=== PATIENT | female | born 1985 | race Caucasian/White ===

== ENCOUNTER → 2023-07-29 12:11 | Outpatient (CLI) | payer OTHER, MEDICAID, SELFPAY ==
[2023-07-29 13:01] LABS: Add Manual Diff / Slide Review NO; Basophils Absolute Auto 100 /uL (0-100); Basophils Percent Auto 0.6 % (0-2); Eosinophils Absolute Auto 200 /uL (0-450); Hematocrit 37.4 % (36-46); Hemoglobin 12.7 g/dL (12.0-16.0); Lymphocytes Absolute Auto 3200 /uL (1100-4500); Lymphocytes Percent Auto 33.6 % (25-40); Mean Corpuscular Volume 88.3 fL (80-100); Monocytes Absolute Auto 700 /uL (0-900); Monocytes Percent Auto 7.4 % (3-14); Neutrophils Absolute Auto 5400 /uL (1500-7000); Neutrophils Percent Auto 56.4 % (50-75); Platelet Count 339 X10^3/uL (150-400); Red Blood Cell Count 4.23 X10^6/uL (4.0-5.2); Red Cell Distribution Width 13.2 % (11.6-14.8); White Blood Cell Count 9.6 X10^3/uL (4.5-11.0)
[2023-07-29 13:42] LABS: Hemoglobin A1C% w Est Avg Glu 5.2 % (4.0-6.0)
[2023-07-29 14:21] LABS: TSH w/ Reflex to FT4 1.46 uIU/mL (0.47-4.68)
[2023-07-29 14:23] LABS: Alanine Aminotransferase 23 IU/L (<35); Albumin 4.2 g/dL (3.5-5.0); Albumin Globulin Ratio 1.4 (1.0-2.8); Alkaline Phosphatase 39 U/L (38-126); BUN Creatinine Ratio 32.7 (6-22); Bilirubin Total 0.4 mg/dL (0.2-1.3); Blood Urea Nitrogen 17 mg/dL (7-17); Calcium 9.4 mg/dL (8.4-10.2); Carbon Dioxide 27 mmol/L (22-32); Chloride 100 mmol/L (98-107); Estimated Glomerular Filt Rate > 60 mL/min (>60); Globulin 3.1 g/dL (1.7-4.1); Glucose 86 mg/dL (70-100); Potassium 4.5 mmol/L (3.4-5.1); Sodium 135 mmol/L (137-145); Total Protein 7.3 g/dL (6.3-8.2)
[2023-07-30 15:18] LABS: Aspartate Aminotransferase 30 IU/L (14-36); HEMOLYSIS 66 (0-50)
== END ==
LOC: LAB 12:12
PROVIDERS: PCP Family Medicine; Referring Provider Family Medicine; Visit Provider Family Medicine
DX: R01.1 Cardiac murmur, unspecified (principal); F41.1 Generalized anxiety disorder; F32.9 Major depressive disorder, single episode, unspecified
CPT/HCPCS: 36415; 80053; 83036; 84443; 85025

== ENCOUNTER 2023-08-20 13:51 | Emergency (ER) | payer OTHER, MEDICAID, SELFPAY ==
[2023-08-20 13:59] VITALS: BP 130/86; PULSE 78; RESP 16; TEMP 36.4; O2SAT 100; BMI 29.0
--- NOTE | 2023-08-20 14:06 | PC.NURSE ---
Family and patient states she had alcohol in her system at clinic but she denies use of alcohol since 2003.
[2023-08-20 14:12] LABS: Urine Volume 10mL (spun)
[2023-08-20 14:14] LABS: Appearance Urine UA CLEAR; Bilirubin Urine UA NEGATIVE (NEGATIVE); Color Urine UA ORANGE; Glucose Urine UA TRACE g/dL (Negative); Ketones Urine UA TRACE (NEGATIVE); Leukocyte Esterase Urine UA NEGATIVE (NEGATIVE); Nitrite Urine UA POSITIVE (Negative); Occult Blood Urine UA NEGATIVE (Negative); Protein Urine UA 1+ (Negative); Specific Gravity Urine UA 1.025 (1.000-1.035); Urobilinogen Urine UA >=8.0 E.U./dL (0.2)
[2023-08-20 14:31] LABS: Bacteria Urine Occasional (0-1); Culture Indicated Urine Cult Not Indicated; RBC Urine None Seen (0-5/HPF); Squamous Epithelial Cell Urine 1-5 /HPF (0-5/HPF); WBC Urine None Seen (0-5/HPF)
[2023-08-20 14:36] LABS: Ur Creatinine Normal (Normal); Ur Specific Gravity Normal (Normal); Urine pH Normal (Normal)
[2023-08-20 14:37] LABS: UR Morphine/Opiate cutoff 300 Negative (Negative); Urine Amphetamines Positive (Negative); Urine Barbiturates Negative (Negative); Urine Benzodiazepines Positive (Negative); Urine Cocaine Negative (Negative); Urine MDMA Negative (Negative); Urine Methadone Positive (Negative); Urine Methamphetamines Positive (Negative); Urine Oxycodone Negative (Negative); Urine Phencyclidine Negative (Negative); Urine Tricyclic Antidepressant Negative (Negative)
[2023-08-20 14:40] LABS: Urine Tetrahydrocannabinol Positive (Negative)
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
[2023-08-20 16:08] LABS: Add Manual Diff / Slide Review NO; Basophils Absolute Auto 100 /uL (0-100); Basophils Percent Auto 0.8 % (0-2); Eosinophils Absolute Auto 200 /uL (0-450); Eosinophils Percent Auto 2.9 % (2-4); Hematocrit 35.9 % (36-46); Hemoglobin 12.1 g/dL (12.0-16.0); Lymphocytes Absolute Auto 2500 /uL (1100-4500); Lymphocytes Percent Auto 37.6 % (25-40); Mean Corpuscular HGB Conc 33.8 % (30-36); Mean Corpuscular Hemoglobin 30.2 PG (26-34); Mean Corpuscular Volume 89.4 fL (80-100); Monocytes Absolute Auto 700 /uL (0-900); Monocytes Percent Auto 9.7 % (3-14); Neutrophils Absolute Auto 3300 /uL (1500-7000); Platelet Count 307 X10^3/uL (150-400); Red Blood Cell Count 4.01 X10^6/uL (4.0-5.2); Red Cell Distribution Width 13.2 % (11.6-14.8); White Blood Cell Count 6.7 X10^3/uL (4.5-11.0)
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
[2023-08-20 16:21] LABS: Blood Urea Nitrogen 17 mg/dL (7-17); Calcium 8.9 mg/dL (8.4-10.2); Carbon Dioxide 32 mmol/L (22-32); Chloride 101 mmol/L (98-107); Estimated Glomerular Filt Rate > 60 mL/min (>60); Ethanol (ETOH) < 10 mg/dL; Glucose 87 mg/dL (70-100); HEMOLYSIS 16 (0-50); Potassium 3.7 mmol/L (3.4-5.1); Sodium 135 mmol/L (137-145)
[2023-08-20 17:12] VITALS: BP 136/76; PULSE 89; RESP 16; O2SAT 100
--- NOTE | 2023-08-20 17:23 | PC.NURSE ---
Pt recently had a liver CT exam and after about 1 hour pt noted back pain/body
[2023-08-20] MEDS: METHADONE INTENSOL 10 MG/ML ORAL.CONC 150 MG PO (17:35)
== END 2023-08-20 17:43 | disposition home or self-care (01) ==
PROVIDERS: Emergency Provider Emergency Medicine; PCP Family Medicine
DX: R41.82 Altered mental status, unspecified (principal); V89.2XXA Person injured in unspecified motor-vehicle accident, traffic, initial encounter
CPT/HCPCS: 70450; 72125; 80048; 80305; 80320; 81001; 85025; 99284

== ENCOUNTER 2024-04-01 12:48 | Emergency (ER) | payer OTHER, MEDICAID, SELFPAY ==
[2024-04-01 13:07] VITALS: BP 144/67; PULSE 98; RESP 18; TEMP 36.1; O2SAT 99; BMI 29.2
--- NOTE | 2024-04-01 14:17 | PC.NURSE ---
right armpit lump, 1 cm in diameter.
--- NOTE | 2024-04-01 15:06 | ED_ITS ---
HPI - Skin/Abscess/Foreign Bdy General Chief complaint: Skin/Abscess/Foreign Body Stated complaint: lump under armpit very painful Time Seen by Provider: 04/01/24 14:26 Source: patient Mode of arrival: Ambulatory History of Present Illness HPI narrative: Patient here with boyfriend. Complains of right arm pain swelling and redness. Patient denies does not want a test. Denies any allergies medications. Patient has never had abscess drained before. Ongoing symptoms for 1 week. No drainage. Related Data Home Medications Medication Instructions Recorded Confirmed buspirone 30 mg tablet 30 mg PO ONCE 07/28/23 08/18/23 docusate sodium 50 mg capsule 50 mg PO DAILY 07/28/23 08/18/23 (Colace Clear) multivitamin 1 tab PO DAILY 07/28/23 08/18/23 prazosin 2 mg capsule 2 mg PO BEDTIME 07/28/23 08/18/23 sertraline 100 mg tablet 100 mg PO DAILY 07/28/23 08/18/23 zolpidem 6.25 mg tablet,extended 6.25 mg PO BEDTIME 07/28/23 08/18/23 release,multiphase Previous Rx's Medication Instructions Recorded amoxicillin 875 mg-potassium 1 tab PO BID #20 tabs 04/01/24 clavulanate 125 mg tablet ibuprofen 800 mg tablet 800 mg PO Q8H PRN pain #20 tabs 04/01/24 ondansetron 4 mg disintegrating 4 mg PO Q8H PRN nausea and 04/01/24 tablet vomiting #10 tabs Allergies Allergy/AdvReac Type Severity Reaction Status Date / Time No Known Drug Allergies Allergy Verified 04/01/24 13:06 Review of Systems Review of Systems Narrative: GENERAL: negative chills, fatigue, malaise, fever, sweats. HEENT: negative sinus pain, ear pain, sore throat RESPIRATORY: negative dyspnea, cough CARDIOVASCULAR: negative chest pain, palpitations GASTROINTESTINAL: negative nausea, vomiting, abdominal pain : negative dysuria, frequency, hematuria MUSCULOSKELETAL: negative muscle or bony pain SKIN: negative rash, positive skin lesions NEUROLOGIC: negative weakness, numbness Patient History Medical History Allergic reaction to grass pollen Substance abuse Depression Foot pain (~2019) Carpal tunnel syndrome (~2009) Chicken pox Abnormal Pap smear of cervix (~2019) Urinary incontinence (~2019) Heart murmur VTE (venous thromboembolism) (~2019) Substance use disorder PTSD (post-traumatic stress disorder) HANK (generalized anxiety disorder) MDD (major depressive disorder) Surgical History (Updated 08/17/23 @ 19:46 by Keara Tyler) Anesthesia History of delivery Family History (Updated 08/17/23 @ 19:47 by Keara Tyler) Father History of heart disease Hypertension Hyperlipidemia Social History marital status: unmarried,single number of children: 2 Smoking Status: Former smoker alcohol intake: never substance use type: does not use Smoking Status: Former smoker Substance Use Type: former substance user Exam Narrative Exam Narrative: GENERAL: in no distress, not toxic not dyspneic HEAD: Normocephalic. EYES: Pupils equal round EXTREMITIES: No gross deformities. Examination right armpit there is a 2 cm diameter cutaneous abscess with central fluctuance. No drainage. No lymphangitis no red streaking. It is tender to touch. No crepitus. No pain out of portion exam. Patient agrees for incision and drainage, verbal consent provided. She is awake alert oriented x4. 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 NEURO: AOx4. SKIN: Warm and dry PSYCH: Not anxious, is cooperative Initial Vital Signs Initial Vital Signs: Vital Signs Temperature 97 F L 04/01/24 13:07 Pulse Rate 98 H 04/01/24 13:07 Respiratory Rate 18 04/01/24 13:07 Blood Pressure 144/67 H 04/01/24 13:07 Pulse Oximetry 99 04/01/24 13:07 Oxygen Delivery Method Room Air 04/01/24 13:07 Procedures Abscess I/D I&D #1: Time of procedure: 15:18 Site: other (Right armpit) Side (if applicable): right Sedation/analgesia: none Local Anesthetic: lidocaine 1% and with epi Amount of anesthesia used (mL): 2 Technique: incised with #11 blade Amount of fluid expressed (mL): 2 Irrigation: Yes Packing used?: none Complications: other (Right arm neurovascularly intact postprocedure. 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 Able to flex and extend supinate pronate at the forearm wrist and elbow) Course Orders Ordered: ED Orders 04/01/24 15:06 Wound Culture and Gram Stain Stat Discontinued Medications Hydrocodone Bitart/Acetaminophen (Hydrocodone/Acet 5/325 Tablet) 2 tab PO NOW ONE Stop: 04/01/24 15:07 Amoxicillin/Clavulanate Potassium (Amoxicillin/Clav 875/125 Mg) 1 tab PO NOW ONE Stop: 04/01/24 15:07 Ondansetron HCl (Ondansetron 4 Mg Odt) 4 mg SL NOW ONE Stop: 04/01/24 15:07 Vital Signs Vital signs: Vital Signs - 8 hr 04/01/24 13:07 Temperature 97 F L Pulse Rate 98 H Respiratory Rate 18 Blood Pressure 144/67 H Pulse Oximetry 99 Oxygen Delivery Method Room Air MDM - Skin/Abscess/Foreign Bdy MDM Narrative Medical decision making narrative: Patient here with boyfriend. Complains of right arm pain swelling and redness. Patient denies does not want a test. Denies any allergies medications. Patient has never had abscess drained before. Ongoing symptoms for 1 week. No drainage. After history and exam, verbal consent given for incision drainage of abscess. Augmentin [place] Zofran wound culture [facility] Medical records reviewed: No recent visit for this complaint Differential considered: Includes but not limited to cellulitis hidradenitis cutaneous abscess Lab Test results independently reviewed as above. Pertinent findings: None indicated at this time Treatments: [place] Zofran Augmentin incision and drainage Re-evaluations: 3:15 p.m.. Patient tolerated procedure very well. Pain is controlled bleeding is controlled wound care instructions provided. Prescriptions provided. Return precautions reviewed she does have a family doctor to follow up with. Patient desires discharge home Discussion: Appropriate for discharge home exam is reassuring. Cultures were done pain medications provided antibiotics started. Return precautions reviewed. Patient desires discharge home. She states she does have family doc tor to follow up with. Diagnosis: Cutaneous abscess Discharge Plan Departure Patient Disposition: Home Clinical Impression: Cutaneous abscess Qualifiers: Site of cutaneous abscess: unspecified site Qualified Code(s): L02.91 - Cutaneous abscess, unspecified Instructions: DI for Incision and Drainage of a Skin Abscess Activity Restrictions/Additional Instructions: No driving operating machinery today as you had pain medication given here. Antibiotics have been started. Prescriptions have been provided for you. Please see your family doctor next week for re-evaluation. Please change dressing daily with warm soap and water and apply clean dressing. You may take a shower but no submersion the armpit under water/swimming. Return if worse if any questions or concerns. The abscess has been drained here in the emergency department. Prescriptions: New ibuprofen 800 mg tablet 800 mg PO Q8H PRN (Reason: pain) Qty: 20 0RF ondansetron 4 mg tablet,disintegrating 4 mg PO Q8H PRN (Reason: nausea and vomiting) Qty: 10 0RF amoxicillin-pot clavulanate 875-125 mg tablet 1 tab PO BID Qty: 20 0RF No Action Colace Clear 50 mg capsule 50 mg PO DAILY zolpidem 6.25 mg tablet,ext release multiphase 6.25 mg PO BEDTIME prazosin 2 mg capsule 2 mg PO BEDTIME buspirone 30 mg tablet 30 mg PO ONCE sertraline 100 mg tablet 100 mg PO DAILY Patient Comments: 2 tabs once in the morning multivitamin Tablet 1 tab PO DAILY Referrals: Nae Esparza MD [Primary Care Provider] - Stand Alone Forms: Patient Portal/API
[2024-04-01] MEDS: HYDROCODONE/ACET 5/325 TABLET 2 TAB PO (15:26)
[2024-04-01] MEDS: AMOXICILLIN/CLAV 875/125 MG 1 TAB PO (15:27)
[2024-04-01 15:37] VITALS: BP 109/69; PULSE 89; RESP 14; O2SAT 100
== END 2024-04-01 15:38 | disposition home or self-care (01) ==
PROVIDERS: Emergency Provider Emergency Medicine; PCP Family Medicine
DX: L02.411 Cutaneous abscess of right axilla (principal)
CPT/HCPCS: 10060; 87070; 87075; 87077; 87147; 87186; 87205; 99283

== ENCOUNTER 2024-05-26 13:54 | Emergency (ER) | payer OTHER, MEDICAID, SELFPAY ==
[2024-05-26 14:13] VITALS: BP 124/74; PULSE 88; RESP 16; TEMP 36.9; O2SAT 99
--- NOTE | 2024-05-26 15:00 | ED.SKABFB ---
HPI - Skin/Abscess/Foreign Bdy <Maribel Menezes PA-C - Last Filed: 05/26/24 16:45> General Chief complaint: Skin/Abscess/Foreign Body Stated complaint: abcess in arm pit Time Seen by Provider: 05/26/24 15:00 Source: patient Mode of arrival: Family Vehicle Limitations: no limitations History of Present Illness HPI narrative: Ms. Gaytan is a pleasant 38-year-old female with a past medical history of substance use, PTSD, MRSA who presents to the emergency department for an abscess in her right axilla x4 days. Patient reports back in March she had have drainage of an abscess in the same area which resolved after antibiotics however 4 days ago it returned in a slightly different area. States that it is with actively draining last night. She denies any fevers, chills, redness, streaking erythema, abdominal pain, vomiting, any other abscesses at this time. Denies current drug use. Denies antibiotic allergies. Related Data Home Medications Medication Instructions Recorded Confirmed buspirone 30 mg tablet 30 mg PO ONCE 07/28/23 08/18/23 docusate sodium 50 mg capsule 50 mg PO DAILY 07/28/23 08/18/23 (Colace Clear) multivitamin 1 tab PO DAILY 07/28/23 08/18/23 prazosin 2 mg capsule 2 mg PO BEDTIME 07/28/23 08/18/23 sertraline 100 mg tablet 100 mg PO DAILY 07/28/23 08/18/23 zolpidem 6.25 mg tablet,extended 6.25 mg PO BEDTIME 07/28/23 08/18/23 release,multiphase Previous Rx's Medication Instructions Recorded amoxicillin 875 mg-potassium 1 tab PO BID #20 tabs 04/01/24 clavulanate 125 mg tablet ibuprofen 800 mg tablet 800 mg PO Q8H PRN pain #20 tabs 04/01/24 ondansetron 4 mg disintegrating 4 mg PO Q8H PRN nausea and 04/01/24 tablet vomiting #10 tabs chlorhexidine gluconate 4 % 1 applic topical DAILY 1 week #946 05/26/24 topical liquid (Hibiclens) mL ibuprofen 600 mg tablet 600 mg PO Q8H PRN fever or pain 05/26/24 #15 tabs sulfamethoxazole 800 1 tab PO BID 7 days #14 tabs 05/26/24 mg-trimethoprim 160 mg tablet (Bactrim DS) Allergies Allergy/AdvReac Type Severity Reaction Status Date / Time No Known Drug Allergies Allergy Verified 04/01/24 13:06 Review of Systems <Maribel Menezes PA-C - Last Filed: 05/26/24 16:45> Constitutional Constitutional: Denies chills, Denies fatigue, Denies fever(s) and Denies weakness Eyes Eyes: Denies change in vision ENT Ears, Nose, Mouth, and Throat: Denies change in voice Cardiovascular Cardiovascular: Denies chest pain and Denies dyspnea Respiratory Respiratory: Denies dyspnea Gastrointestinal Gastrointestinal: Denies abdominal pain and Denies vomiting Integumentary/Breasts Skin/Breast: Denies pruritus, Denies erythema, Denies rash and Reports wounds (R axilla abscess) Neurologic Neurologic: Denies weakness Endocrine Endocrine: Denies fatigue Patient History <Maribel Menezes PA-C - Last Filed: 05/26/24 16:45> Medical History Allergic reaction to grass pollen Substance abuse Depression Foot pain (~2019) Carpal tunnel syndrome (~2009) Chicken pox Abnormal Pap smear of cervix (~2019) Urinary incontinence (~2019) Heart murmur VTE (venous thromboembolism) (~2019) Substance use disorder PTSD (post-traumatic stress disorder) HANK (generalized anxiety disorder) MDD (major depressive disorder) Surgical History Anesthesia History of delivery Family History Father History of heart disease Hypertension Hyperlipidemia Social History marital status: unmarried,single number of children: 2 Smoking Status: Former smoker alcohol intake: never substance use type: does not use Smoking Status: Former smoker Substance Use Type: former substance user Exam <Maribel Menezes PA-C - Last Filed: 05/26/24 16:45> Narrative Exam Narrative: GENERAL: 38 year old patient appears stated age. Well-developed patient, in no acute distress. HEAD: Atraumatic. Normocephalic. EYES: Extraocular motions intact. No scleral icterus. No injection or drainage. ENT: Nose without bleeding, purulent drainage. Airway patent. NECK: Trachea midline. Non tender CARDIOVASCULAR: Regular rate and rhythm. RESPIRATORY: Clear to auscultation. Breath sounds equal bilaterally. No wheezes, rales, or rhonchi. GASTROINTESTINAL: Abdomen soft, non-tender, nondistended. EXTREMITIES: No edema or joint tenderness. BACK: Nontender without deformity or crepitance. NEURO: AOx3. SKIN: Less than 1 cm tender abscess in right axilla minimal overlying scabbing from prior drainage. No surrounding erythema or streaking erythema. No large fluid collection on bedside ultrasound. No rash or erythema of visible areas Initial Vital Signs Initial Vital Signs: Vital Signs Temperature 98.5 F 05/26/24 14:13 Pulse Rate 88 05/26/24 14:13 Respiratory Rate 16 05/26/24 14:13 Blood Pressure 124/74 05/26/24 14:13 Pulse Oximetry 99 05/26/24 14:13 Oxygen Delivery Method Room Air 05/26/24 14:13 <Heide Patel DO - Last Filed: 05/27/24 08:16> Initial Vital Signs Initial Vital Signs: Vital Signs Temperature 98.5 F 05/26/24 14:13 Pulse Rate 88 05/26/24 14:13 Respiratory Rate 16 05/26/24 14:13 Blood Pressure 124/74 05/26/24 14:13 Pulse Oximetry 99 05/26/24 14:13 Oxygen Delivery Method Room Air 05/26/24 14:13 Course <Maribel Menezes PA-C - Last Filed: 05/26/24 16:45> Orders Ordered: Discontinued Medications Ibuprofen (Ibuprofen 400 Mg Tablet) 800 mg PO NOW ONE Stop: 05/26/24 15:29 Last Admin: 05/26/24 15:55 Dose: 800 mg Documented By: CODY Vital Signs Vital signs: Vital Signs - 8 hr 05/26/24 14:13 Temperature 98.5 F Pulse Rate 88 Respiratory Rate 16 Blood Pressure 124/74 Pulse Oximetry 99 Oxygen Delivery Method Room Air <Heide Patel DO - Last Filed: 05/27/24 08:16> Orders Ordered: Discontinued Medications Ibuprofen (Ibuprofen 400 Mg Tablet) 800 mg PO NOW ONE Stop: 05/26/24 15:29 Last Admin: 05/26/24 15:55 Dose: 800 mg Documented By: CODY Vital Signs Vital signs: Vital Signs - 8 hr 05/26/24 14:13 Temperature 98.5 F Pulse Rate 88 Respiratory Rate 16 Blood Pressure 124/74 Pulse Oximetry 99 Oxygen Delivery Method Room Air MDM - Skin/Abscess/Foreign Bdy <Maribel Menezes PA-C - Last Filed: 05/26/24 16:45> Lab Data Labs: Lab Results 05/26/24 Range/Units 15:25 Urine RBC 10-30/hpf H (0-5/HPF) Urine WBC 1-5/hpf (0-5/HPF) Ur Squamous Epith Cells 10-30 /hpf H D (0-5/HPF) Urine Bacteria Few (2-10) H (None) Urine Mucus 2+ H (Negative) Ur Culture Indicated? Cult not indicated Vol Urine Centrifuged 10ml (spun) Point of Care Testing Test Results Negative MDM Narrative Medical decision making narrative: 38-year-old female with a past medical history of substance use, PTSD, MRSA who presents to the emergency department for an abscess in her right axilla x4 days. Differential diagnosis includes but is not limited to abscess, hidradenitis suppurativa, cellulitis, lymphadenopathy, etc.. On exam patient is in no acute distress, nontoxic-appearing, all vital signs within normal limits. She has a very small tender area of swelling of the right axilla consistent with cutaneous abscess. Small amount of overlying scabbing as it was actively draining last night. After shared decision-making with the patient and after bedside ultrasound, determined there is no large fluid collection appropriate for I and D at this time. Advised Hibiclens wash, warm compresses, will prescribe antibiotics with MRSA coverage. Patient also requesting to be checked for UTI - menstrual cycle started today and UA without obvious infx. Patient given 1st dose of ibuprofen in the ED (after negative test). Discussed proper wound care with the patient including the importance completing full course of antibiotics. Discussed strict ED return precautions. Patient verbalized understanding of all information, is agreeable to plan, and is stable for discharge home. <Heide Patel DO - Last Filed: 05/27/24 08:16> Lab Data Labs: Lab Results 05/26/24 Range/Units 15:25 Urine RBC 10-30/hpf H (0-5/HPF) Urine WBC 1-5/hpf (0-5/HPF) Ur Squamous Epith Cells 10-30 /hpf H D (0-5/HPF) Urine Bacteria Few (2-10) H (None) Urine Mucus 2+ H (Negative) Ur Culture Indicated? Cult not indicated Vol Urine Centrifuged 10ml (spun) Point of Care Testing Test Results Negative Discharge Plan Departure Patient Disposition: Home Clinical Impression: Abscess of axilla, right Instructions: DI for Skin Abscess Activity Restrictions/Additional Instructions: Today you are being treated for an abscess in your right underarm. Please use warm compresses to help with drainage. It is very important that you keep this area clean, dry, covered with gauze or bandage. Complete the full course of antibiotics and use the Hibiclens body wash and ibuprofen as needed. Return to the emergency department if you develop fevers, increased size, redness or pain at the abscess, or any other concerns. Prescriptions: New sulfamethoxazole-trimethoprim [Bactrim DS] 800-160 mg tablet 1 tab PO BID 7 Days Qty: 14 0RF chlorhexidine gluconate [Hibiclens] 4 % liquid 1 applic topical DAILY 7 Days Qty: 946 0RF ibuprofen 600 mg tablet 600 mg PO Q8H PRN (Reason: fever or pain) Qty: 15 0RF No Action Colace Clear 50 mg capsule 50 mg PO DAILY zolpidem 6.25 mg tablet,ext release multiphase 6.25 mg PO BEDTIME prazosin 2 mg capsule 2 mg PO BEDTIME buspirone 30 mg tablet 30 mg PO ONCE sertraline 100 mg tablet 100 mg PO DAILY Patient Comments: 2 tabs once in the morning multivitamin Tablet 1 tab PO DAILY ibuprofen 800 mg tablet 800 mg PO Q8H PRN (Reason: pain) Qty: 20 0RF ondansetron 4 mg tablet,disintegrating 4 mg PO Q8H PRN (Reason: nausea and vomiting) Qty: 10 0RF amoxicillin-pot clavulanate 875-125 mg tablet 1 tab PO BID Qty: 20 0RF Referrals: Nae Esparza MD [Primary Care Provider] - Stand Alone Forms: Patient Portal/API/Survey ED Sign-out <Heide Patel DO - Last Filed: 05/27/24 08:16> Cosign ED Attending Cosignature Attestation: I was available for consultation.
--- NOTE | 2024-05-26 15:44 | CM.SWNOTE ---
ED [employer] Note Patient is 38 y/o female who presents to the ED via POV with boyfriend due to concern for abcess on armpit. Patient has PCP Dr. Esparza, patient has [place] Medicaid insurance. [employer]BER receives consult due to housing and transportation insecurity. COMM[employer]ICATION[employer] TOWER CL[employer]BER enters room to meet with patient, present in room is patient's boyfriend. Patient presents as A/Ox4. Patient endorses she is staying at her mother's house and there has been some stress in the home because her grandpa has Alzheimer's. Patient states that her mother threatened 30 days notice eviction but patient thinks she can work things out with her mother. Patient endorses she is enrolled in the HEN program with [facility] through [facility] services. Patient endorses she is engaged in MH and [facility] services at [facility] and needs to take the bus there for appts. COMM[employer]BER offers bus passes and patient's boyfriend was in need of transport as well. [employer] provides patient with [address] [place] [address] bus passes for appts as they have no vehicle. COMM[employer] provides patient with housing and basic need resources as well. Plan: patient to d/c to home upon medical clearance with resources provided. SEBASTIAN Vasquez
[2024-05-26 15:54] LABS: Bacteria Urine Few (2-10); Culture Indicated Urine Cult Not Indicated; Mucus Urine 2+ (Negative); RBC Urine 10-30/HPF (0-5/HPF); Squamous Epithelial Cell Urine 10-30 /HPF (0-5/HPF); Urine Volume 10mL (spun); WBC Urine 1-5/HPF (0-5/HPF)
[2024-05-26] MEDS: IBUPROFEN 400 MG TABLET 800 MG PO (15:55)
== END 2024-05-26 16:15 | disposition home or self-care (01) ==
PROVIDERS: Emergency Provider Physician Assistant; PCP Family Medicine
DX: L02.411 Cutaneous abscess of right axilla (principal)
CPT/HCPCS: 81015; 81025; 99282; 99283